=== PATIENT | male | born 1990 | race Caucasian/White ===

== ENCOUNTER 2022-04-28 08:18 | Emergency (ER) | payer OTHER ==
[~2022-04-28] VITALS: Ht 182.9 cm; Wt 107.6 kg
[~2022-04-28 08:18] MED LIST: ACET325; HYDACE5 PO; MOMENI; NAPR500 PO
[2022-04-28] MEDS ORDERED: AMOCLA875 PO (22:26)
== END 2022-04-28 08:55 | disposition home or self-care (01) ==
LOC: ER 08:18
DX: K12.0 Recurrent oral aphthae (principal); Z88.8 Allergy status to other drugs, medicaments and biological substances; Z79.899 Other long term (current) drug therapy
CPT/HCPCS: 99282

== ENCOUNTER 2022-04-28 18:32 | Emergency (ER) | payer OTHER ==
[~2022-04-28] VITALS: Ht 182.9 cm; Wt 106.6 kg
[2022-04-28] MEDS ORDERED: AMOCLA875 PO (22:26)
== END 2022-04-28 22:52 | disposition home or self-care (01) ==
LOC: ER 18:32
DX: K04.7 Periapical abscess without sinus (principal); Z88.8 Allergy status to other drugs, medicaments and biological substances
CPT/HCPCS: A9270